=== PATIENT | female | born 1990 | race Caucasian/White ===

== ENCOUNTER 2017-06-25 12:23 | Emergency (ER) | payer OTHER ==
[2017-06-25 13:14] VITALS: BP 100/71
[2017-06-25] MEDS ORDERED: Cyclobenzaprine TAB* 10 MG PO ONE (13:47)
[2017-06-25] MEDS ORDERED: HYDROcodone/ACETAMIN 5-325 MG* 1 TAB PO ONE (13:47)
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
== END 2017-06-25 14:00 | disposition home or self-care (01) ==
LOC: ED 12:23
DX: M54.2 Cervicalgia (principal)
CPT/HCPCS: 99282; A9270-GY

== ENCOUNTER 2018-02-13 20:00 | Emergency (ER) | payer SELFPAY ==
[2018-02-13] MEDS ORDERED: Ketorolac INJ* 60 MG/2 ML VIAL IM ONE (20:57)
--- NOTE | 2018-02-13 21:16 | RAD ---
INDICATION: Left pleuritic chest pain COMPARISON: November 02, 2012 TECHNIQUE: PA and lateral dual-energy views were obtained. FINDINGS: Bones/Soft Tissues: There are no acute bony findings. There is minor kyphoscoliosis Cardiomediastinal: The cardiomediastinal silhouette is normal. Lungs: There are no infiltrates. There is no pneumothorax. Pleura: There are no pleural effusions. Other: None IMPRESSION: NO ACTIVE DISEASE.
[2018-02-13 21:19] LABS: ABS Basophils 0.1 10^3/ul (0-0.2); ABS Eosinophils 0.2 10^3/ul (0-0.6); ABS Lymphocytes 3.9 10^3/ul (1.0-4.8); ABS Neutrophils 6.3 10^3/ul (1.5-7.7); ABS Nucleated RBC 0 10^3/ul; Eosinophil % 1.5 % (0-6); Hematocrit 40 % (35-47); Hemoglobin 13.9 g/dl (12.0-16.0); Lymphocyte % 34.2 % (25-47); Mean Corpuscular HGB Conc 35 g/dl (31-36); Mean Corpuscular Hemoglobin 30 pg (27-31); Mean Corpuscular Volume 85 fL (80-97); Mean Platelet Volume 7.6 um3 (7.4-10.4); Nucleated Red Blood Cells % 0; Platelet Count 330 10^3/ul (150-450); Red Cell Distribution Width 13 % (10.5-15); White Blood Count 11.4 10^3/ul (3.5-10.8)
[2018-02-13 21:37] LABS: EGFR Non-African American 105.4 (>60)
[2018-02-13 22:22] VITALS: BP 103/54
--- NOTE | 2018-02-20 12:48 | ED ---
Randa Saenz Thomas, scribed for Tan Mesa MD on 02/13/18 at 2039 . HPI Chest Pain - HPI Summary HPI Summary: The patient is a 27 year old female complaining of chest pain that began two days ago. The pain is alleviated by ibuprofen. The pain is aggravated by deep inhalations and the pain is reproducible. She denies shortness of breath, fever , sweats, chills, edema, and leg pain. She denies recent car travels or known trauma. She is a non-smoker and rarely uses alcohol. The patient is on Nexplanon but no other medications. - History of Current Complaint Chief Complaint: EDChestWallPain Time Seen by Provider: 02/13/18 20:29 Hx Obtained From: Patient Hx Last Menstrual Period: unknown d/t depo Onset/Duration: Started Days Ago - 2, Still Present Timing: Constant Current Severity: Moderate Pain Intensity: 7 Pain Scale Used: 0-10 Numeric Character: Other: - NEGATIVE: fever, sweats, chills, SOB, edema, leg pain Aggravating Factor(s): Deep Breaths, Other: - Pain is reproducible Alleviating Factor(s): OTC Meds - ibuprofen Associated Signs and Symptoms: Positive: Other: - NEGATIVE: shortness of breath , fever, sweats, chills, edema, and leg pain Related History: Obesity - Allergy/Home Medications Allergies/Adverse Reactions: Allergies Allergy/AdvReac Type Severity Reaction Status Date / Time No Known Allergies Allergy Verified 02/13/18 20:12 PMH/Surg Hx/FS Hx/Imm Hx Endocrine/Hematology History: Denies: Hx Diabetes, Hx Thyroid Disease Cardiovascular History: Denies: Hx Hypertension Respiratory History: Denies: Hx Asthma, Hx Chronic Obstructive Pulmonary Disease (COPD) GI History: Denies: Hx Ulcer Infectious Disease History: No Infectious Disease History: Denies: Hx Hepatitis, Hx Human Immunodeficiency Virus (HIV), Traveled Outside the [place] in Last 30 Days - Family History Known Family History: Positive: Hypertension Negative: Other - blood clots - Social History Alcohol Use: Rare Hx Substance Use: No Substance Use Type: Reports: None Hx Tobacco Use: No Smoking Status (MU): Never Smoked Tobacco Review of Systems Negative: Fever, Chills, Other - sweats Negative: Erythema Negative: Sore Throat Positive: Chest Pain Negative: Shortness Of Breath Negative: Abdominal Pain, Vomiting, Nausea Negative: dysuria, hematuria Negative: Myalgia, Edema, Other - leg pain Negative: Rash Neurological: Negative - dizziness All Other Systems Reviewed And Are Negative: Yes Physical Exam - Summary Physical Exam Summary: Constitutional: Well-developed, Well-nourished, Alert. (-) Distressed Skin: Warm, Dry HENT: Normocephalic; Atraumatic Eyes: Conjunctiva normal Neck: Musculoskeletal ROM normal neck. (-) JVD, (-) Stridor, (-) Tracheal deviation Cardio: Rhythm regular, rate normal, Heart sounds normal; Intact distal pulses; The pedal pulses are 2+ and symmetric. Radial pulses are 2+ and symmetric. (-) Murmur Pulmonary/Chest wall: Effort normal. (-) Respiratory distress, (-) Wheezes, (-) Rales. There is costochondral tenderness at the left third costochondral space. Abd: Soft, (-) Tenderness, (-) Distension, (-) Guarding, (-) Rebound Musculoskeletal: (-) Edema Lymph: (-) Cervical adenopathy Neuro: Alert, Oriented x3 Psych: Mood and affect Normal Triage Information Reviewed: Yes Vital Signs On Initial Exam: Initial Vitals Temp Pulse Resp BP Pulse Ox 98.5 F 89 16 117/51 97 02/13/18 20:05 02/13/18 20:05 02/13/18 20:05 02/13/18 20:05 02/13/18 20:05 Vital Signs Reviewed: Yes Diagnostics - Vital Signs Vital Signs Temp Pulse Resp BP Pulse Ox 02/13/18 20:05 98.5 F 89 16 117/51 97 - Laboratory Result Diagrams: 02/13/18 21:00 02/13/18 21:00 Lab Statement: Any lab studies that have been ordered have been reviewed, and results considered in the medical decision making process. - Radiology CXR Xray Interpretation: No Acute Changes - No active disease. Dr. Mesa has reviewed this report. Radiology Interpretation Completed By: Radiologist - EKG 20:10 Cardiac Rate: NL EKG Rhythm: Sinus Rhythm - at 69 BPM EKG Interpretation: No STEMI. Re-Evaluation - Re-Evaluation First Eval Re-Evaluation Time: 21:57 Comment: Results were discussed. The patient will be discharged. Chest Pain Course/Dx - Course Assessment/Plan: The patient is a 27 year old female complaining of reproducible chest pain that began two days ago. The patient was given Toradol. Bloodwork, EKG, and CXR were obtained. I do not suspect acute coronary syndrome. She is at moderate risk for pulmonary embolism. She is stable. She most likely has costochondritis. - Diagnoses Provider Diagnoses: Costochondritis Discharge - Sign-Out/Discharge Documenting (check all that apply): Discharge - Discharge Plan Condition: Stable Disposition: HOME Patient Education Materials: Costochondritis (ED) Referrals: Lisa Benjamin MD [Medical Doctor] - 2 Days Additional Instructions: Follow up with Dr. Benjamin in 2-3 days. Return to the emergency department for any new or worsening symptoms. The documentation as recorded by the Randa licona Thomas accurately reflects the service I personally performed and the decisions made by me, Tan Mesa MD.
== END 2018-02-13 22:22 | disposition home or self-care (01) ==
LOC: ED 20:00
DX: M94.0 Chondrocostal junction syndrome [Tietze] (principal); R07.9 Chest pain, unspecified
CPT/HCPCS: 36415; 71046; 80053; 83605; 84484; 85025; 85379; 93005; 96372; 99283; J1885

== ENCOUNTER 2018-11-06 18:22 | Emergency (ER) | payer OTHER ==
[2018-11-06] MEDS ORDERED: Ketorolac TAB * 10 MG TAB PO ONE (19:28)
[2018-11-06] MEDS ORDERED: Diazepam TAB(*) 5 MG PO ONE (19:37)
--- NOTE | 2018-11-06 19:54 | ED ---
Back Pain - HPI Summary HPI Summary: Patient complains of bilateral lower back pain subsequent to near fall yesterday. Patient states she tripped over her dog and caught herself but felt like she "jerked her back". Denies urinary retention, incontinence, head injury , any other pain, injury or symptoms. Patient states she took one of her mothers tizanidine's with no relief. - History of Current Complaint Chief Complaint: EDBackInjuryPain Stated Complaint: BACK PAIN Time Seen by Provider: 11/06/18 19:22 Hx Obtained From: Patient Hx Last Menstrual Period: unknown d/t depo Onset/Duration: Lasting Hours Onset/Duration: Started Hours Ago Timing: Constant Back Pain Location: Is Discrete @ Severity Initially: Severe Severity Currently: Severe Pain Intensity: 10 Pain Scale Used: 0-10 Numeric Character: Aching, Throbbing Aggravating Symptom(s): Movement, Bending Alleviating Symptom(s): Rest Associated Signs And Symptoms: Positive: Negative - Allergies/Home Medications Allergies/Adverse Reactions: Allergies Allergy/AdvReac Type Severity Reaction Status Date / Time No Known Allergies Allergy Verified 02/13/18 20:12 PMH/Surg Hx/FS Hx/Imm Hx Endocrine/Hematology History: Denies: Hx Diabetes, Hx Thyroid Disease Cardiovascular History: Denies: Hx Cardiac Arrest, Hx Hypertension Respiratory History: Denies: Hx Asthma, Hx Chronic Obstructive Pulmonary Disease (COPD) GI History: Denies: Hx Ulcer History: Denies: Hx Dialysis EENT History: Denies: Hx Deafness Neurological History: Denies: Hx Dementia Psychiatric History: Denies: Hx Autism Infectious Disease History: No Infectious Disease History: Denies: Hx Hepatitis, Hx Human Immunodeficiency Virus (HIV), Traveled Outside the [place] in Last 30 Days - Family History Known Family History: Positive: Hypertension Negative: Other - blood clots - Social History Lives: With Family Alcohol Use: Rare Hx Substance Use: No Substance Use Type: Reports: None Hx Tobacco Use: No Smoking Status (MU): Never Smoked Tobacco Review of Systems Constitutional: Negative Eyes: Negative ENT: Negative Cardiovascular: Negative Respiratory: Negative Gastrointestinal: Negative Genitourinary: Negative Musculoskeletal: Other Skin: Negative Neurological: Negative Psychological: Normal All Other Systems Reviewed And Are Negative: Yes Physical Exam - Summary Physical Exam Summary: No tenderness to palpation along spine. Tenderness to palpation along paraspinal muscles of the lumbar spine. PMS intact distally on bilateral lower extremities. No ecchymosis, erythema, deformity, masses, swelling noted to back. Triage Information Reviewed: Yes Vital Signs On Initial Exam: Initial Vitals Temp Pulse Resp BP Pulse Ox 99.8 F 84 18 138/68 99 11/06/18 18:43 11/06/18 18:43 11/06/18 18:43 11/06/18 18:43 11/06/18 18:43 Vital Signs Reviewed: Yes Appearance: Positive: Well-Appearing Skin: Positive: Warm Head/Face: Positive: Normal Head/Face Inspection Eyes: Positive: Normal Neck: Positive: Supple Respiratory/Lung Sounds: Positive: Clear to Auscultation Cardiovascular: Positive: Normal Abdomen Description: Positive: Nontender Musculoskeletal: Positive: Normal Neurological: Positive: Normal Psychiatric: Positive: Normal AVPU Assessment: Alert - [place] Coma Scale Best Eye Response: 4 - Spontaneous Best Motor Response: 6 - Obeys Commands Best Verbal Response: 5 - Oriented Coma Scale Total: 15 Diagnostics - Vital Signs Vital Signs Temp Pulse Resp BP Pulse Ox 11/06/18 19:42 20 11/06/18 18:43 99.8 F 84 18 138/68 99 - Laboratory Lab Statement: Any lab studies that have been ordered have been reviewed, and results considered in the medical decision making process. Back Pain Course/Dx - Course Course Of Treatment: Patient complains of bilateral lower back pain subsequent to near fall yesterday. Patient states she tripped over her dog and caught herself but felt like she "jerked her back". Denies urinary retention, incontinence, head injury, any other pain, injury or symptoms. Patient states she took one of her mothers tizanidine's with no relief. Physical exam:No tenderness to palpation along spine. Tenderness to palpation along paraspinal muscles of the lumbar spine. PMS intact distally on bilateral lower extremities. No ecchymosis, erythema, deformity, masses, swelling noted to back. Patient ambulatory, came to ED in high heels. - Diagnoses Provider Diagnoses: Muscle spasm Discharge - Sign-Out/Discharge Documenting (check all that apply): Patient Departure - Discharge Plan Condition: Stable Disposition: HOME Prescriptions: Cyclobenzaprine TAB* [Flexeril 10 MG TAB*] 10 mg PO TID PRN 3 Days #9 tab MDD 3 PRN Reason: Pain Patient Education Materials: Muscle Spasm (ED) Forms: *Work Release Referrals: Ute MITCHELL,Roland [Primary Care Provider] - Additional Instructions: Take flexeril for muscle relaxer as directed. Alternate ibuprofen 600 mg with Tylenol 650 mg every 3 hours for additional pain relief. May also use heating pad. Follow-up with primary care. Return to the ED for any new or worsening symptoms. - Billing Disposition and Condition Condition: STABLE Disposition: Home
[2018-11-06 20:23] VITALS: BP 122/92
== END 2018-11-06 20:13 | disposition home or self-care (01) ==
LOC: ED 18:22
DX: M62.830 Muscle spasm of back (principal); M54.5 Low back pain
CPT/HCPCS: 99282; A9270-GY

== ENCOUNTER 2019-05-20 04:27 | Emergency (ER) | payer OTHER ==
--- NOTE | 2019-05-20 05:02 | ED ---
Throat Pain/Nasal Congestion - HPI Summary HPI Summary: This pt is a 29 y/o F presenting to [facility] with a CC of bilateral ear pain since 0300 this morning which is rated an 8/10 in severity. She states that the pain woke her up and she reports being unable to hear out of her ears. She also reports a headache and teeth ache. She has been taking amoxicillin for a sinus infection for a week. She states that she was feeling much better last night until she woke up this morning. She denies any fever, cough, runny nose, abdominal pain, chest pain, and SOB. She has no alleviating factors and states that yawning causes her eyes to pop which increases their pain. - History of Current Complaint Chief Complaint: EDEarPain Time Seen by Provider: 05/20/19 04:36 Hx Obtained From: Patient Onset/Duration: Sudden Onset, Lasting Hours - hours, Still Present Severity: Worse Since: - last night Related History: Other (Noted In Comments) - Has had a sinus infection for about a week - Allergies/Home Medications Allergies/Adverse Reactions: Allergies Allergy/AdvReac Type Severity Reaction Status Date / Time No Known Allergies Allergy Verified 05/20/19 04:50 Home Medications: Home Medications Amoxicillin PO (*) [Amoxicillin 875 MG (*)] 875 mg PO BID 05/20/19 [History Confirmed 05/20/19] PMH/Surg Hx/FS Hx/Imm Hx Previously Healthy: No Endocrine/Hematology History: Denies: Hx Diabetes, Hx Thyroid Disease Cardiovascular History: Denies: Hx Cardiac Arrest, Hx Hypertension Respiratory History: Denies: Hx Asthma, Hx Chronic Obstructive Pulmonary Disease (COPD) GI History: Denies: Hx Ulcer History: Denies: Hx Dialysis Sensory History: Denies: Hx Deafness Neurological History: Denies: Hx Dementia Psychiatric History: Denies: Hx Autism - Surgical History Surgical History: None - Immunization History Immunizations Up to Date: Yes Infectious Disease History: No Infectious Disease History: Denies: Hx Hepatitis, Hx Human Immunodeficiency Virus (HIV), Traveled Outside the [place] in Last 30 Days - Family History Known Family History: Positive: Hypertension Negative: Other - blood clots - Social History Occupation: Employed Full-time Lives: With Family Alcohol Use: Rare Hx Substance Use: No Substance Use Type: Reports: None Hx Tobacco Use: No Smoking Status (MU): Never Smoked Tobacco Review of Systems Negative: Fever Positive: Dental Pain, Ear Ache - bilateral. Negative: Nasal Discharge Negative: Chest Pain Negative: Shortness Of Breath, Cough Negative: Abdominal Pain Positive: Headache All Other Systems Reviewed And Are Negative: Yes Physical Exam - Summary Physical Exam Summary: Appearance: Well-appearing, Well-nourished, lying in bed comfortable Skin: Warm, dry, no obvious rash Eyes: sclera anicteric, no conjunctival pallor ENT: Throat is clear, both ear canals were occluded with wax. Right ear was cleared, the drum appears to be distended without normal land camejo. Neck: deferred Respiratory: No signs of respiratory distress Cardiovascular: Appears well perfused, pulses are nml Abdomen: deferred Musculoskeletal: Moving all 4 extremities without obvious discomfort Neurological: Awake and alert, mentation is normal, speech is fluent and appropriate Psychiatric: affect is normal, does not appear anxious or depressed Triage Information Reviewed: Yes Vital Signs On Initial Exam: Initial Vitals Temp Pulse Resp BP Pulse Ox 98.0 F 89 16 135/82 98 05/20/19 04:28 05/20/19 04:28 05/20/19 04:28 05/20/19 04:28 05/20/19 04:28 Vital Signs Reviewed: Yes Diagnostics - Vital Signs Vital Signs Temp Pulse Resp BP Pulse Ox 05/20/19 04:28 98.0 F 89 16 135/82 98 - Laboratory Lab Statement: Any lab studies that have been ordered have been reviewed, and results considered in the medical decision making process. EENT Course/Dx - Course Course Of Treatment: This pt is a 29 y/o F presenting to [facility] with a CC of bilateral ear pain since 0300 this morning which is rated an 8/10 in severity. She states that the pain woke her up and she reports being unable to hear out of her ears. She also reports a headache and teeth ache. Her PE found that her Throat is clear, both ear canals were occluded with wax. Right ear was cleared, the drum appears to be distended without normal land camejo. Her right ear was drained from a build up of ear wax to look at her ear drums in the hope of finding what was cuasing her the pain. The right ear was iragated enough to be able to look at R ear drum which was found to have fluid build up behind it. She with be discharged with a Dx of serous otitis media and given a new perscription for Augmentin routine and orders to take motrin and mucinex PRN. - Diagnoses Provider Diagnoses: Serous otitis media Discharge - Sign-Out/Discharge Documenting (check all that apply): Patient Departure - discharge Patient Received Moderate/Deep Sedation with Procedure: No - Discharge Plan Condition: Good Disposition: HOME Prescriptions: Amoxicillin/Clavulanate TAB* [Augmentin TAB 875*] 875 mg PO BID #20 tab Patient Education Materials: Serous Otitis Media (ED) Referrals: Enrike Lucero MD [Medical Doctor] - - Billing Disposition and Condition Condition: GOOD Disposition: Home - Attestation Statements Document Initiated by Scribe: Yes Documenting Scribe: Kendall Romero Provider For Whom Wen is Documenting (Include Credential): Sterling Dejesus MD Scribe Attestation: Kendall Saenz, scribed for Sterling Dejesus MD on 05/21/19 at 0112. Scribe Documentation Reviewed: Yes Provider Attestation: The documentation as recorded by the Kendall licona accurately reflects the service I personally performed and the decisions made by , Sterling Dejesus MD Status of Scribe Document: Viewed
[2019-05-20 05:21] VITALS: BP 130/78
== END 2019-05-20 05:19 | disposition home or self-care (01) ==
LOC: ED 04:27
DX: H65.90 Unspecified nonsuppurative otitis media, unspecified ear (principal); R51 Headache; K08.89 Other specified disorders of teeth and supporting structures
CPT/HCPCS: 99282